=== PATIENT | female | born 1990 | race Caucasian/White ===

== ENCOUNTER 2018-07-12 02:51 | Emergency (ER) | payer OTHER ==
[~2018-07-12] VITALS: Ht 162.6 cm; Wt 70.5 kg
[2018-07-12 03:24] VITALS: BP 118/64
[2018-07-12] MEDS ORDERED: KETOROLAC TROMETHAMINE 60 MG/2 ML VIAL IM ONE (03:30)
== END 2018-07-12 04:00 | disposition home or self-care (01) ==
LOC: EMS 02:52
DX: N39.0 Urinary tract infection, site not specified (principal); I63.9 Cerebral infarction, unspecified
CPT/HCPCS: 96372; 99283; J1885